=== PATIENT | male | born 1950 | race Caucasian/White ===

== ENCOUNTER → 2021-04-24 | Outpatient (CLI) | payer OTHER ==
[~2021-04-24] MED LIST: IBUP800 PO; KRILL OIL PO; LOSHYD100 PO; MULVITA PO; NIAC500ER PO; SIMV40 PO; VOLTAREN 1% GEL TOP
[2021-04-24 16:53] LABS: Microalb/Creat Ratio UR, Rand 17.347 mg/g (0.000-30.000); Microalbumin, Random Urine 25.5 mg/L (0.000-20.000)
== END | disposition home or self-care (01) ==
LOC: LAB SHORT 15:14
PROVIDERS: Nurse Practitioner Family
DX: E11.8 Type 2 diabetes mellitus with unspecified complications (principal)
CPT/HCPCS: 82043; 82570